=== PATIENT | female | born 2000 | race Caucasian/White ===

== ENCOUNTER 2020-11-27 11:32 | Emergency (ER) | payer OTHER ==
[~2020-11-27 11:32] MED LIST: NORCO 5-325 TA1 EACH PO
[2020-11-27 13:21] LABS: CORONAVIRUS 2019 SARS-COV-2 NEGATIVE (NEGATIVE); INFLUENZA A NAA NEGATIVE (NEGATIVE)
[2020-11-27 13:49] LABS: BASOPHIL 0.2 % (0-2); EOSINOPHIL 0 % (0-5); HCT 43.5 % (37.0-47.0); HGB 14.3 g/dl (12.5-16.0); LYMPHOCYTE 18.2 % (15-48); MCH 29.1 pg (25.0-31.0); MCHC 32.9 g/dL (32.0-36.0); MCV 88.4 fL (78.0-100.0); MONOCYTE 10.1 % (0-12); MPV 11.4 fL (6.0-9.5); NEUTROPHIL 71.1 % (41-80); NRBC 0; PLT 225 K/uL (150-400); RBC 4.92 M/uL (4.20-5.40); RDW 13.5 % (11.5-14.0); WBC 8.4 K/uL (4.0-10.5)
[2020-11-27 13:49] LABS: BILIRUBIN NEGATIVE (NEGATIVE); BLOOD 1+ Ery/uL (NEGATIVE); CLARITY CLEAR (CLEAR); COLOR YELLOW (YELLOW); GLUCOSE (U) NORMAL (NORMAL); LEUKOCYTES 1+ Leu/uL (NEGATIVE); NITRITE NEGATIVE (NEGATIVE); PROTEIN NEGATIVE (NEGATIVE); UROBILINOGEN 0.2 mg/dL (0.2-1.0)
[2020-11-27 13:56] LABS: MONOSPOT (MONONUCLEOSIS) NEGATIVE (NEGATIVE)
[2020-11-27 14:06] LABS: ALBUMIN 3.9 g/dL (3.4-5.0); BILIRUBIN - TOTAL 0.4 mg/dL (0.2-1.0); BUN/CREAT RATIO (CALC) 8.1 RATIO; CREATININE 0.86 mg/dL (0.51-0.95); GLOBULIN (CALCULATION) 4.3 g/dL; POTASSIUM 3.7 mmol/L (3.5-5.1); TOTAL PROTEIN 8.2 g/dL (6.4-8.2)
[2020-11-27 14:07] LABS: BACTERIA 1+; URINARY RBC RARE
[2020-11-27] MEDS ORDERED: AMOXICILLIN875 MG PO (14:11)
[2020-11-27] MEDS ORDERED: MEDROL 4MG DOSEP4 MG PO (14:11)
[2020-11-27] MEDS ORDERED: ZOFRAN4 M1 PO (14:11)
[2020-11-27] MEDS ORDERED: NAPROXEN500 MG PO (14:11)
== END 2020-11-27 14:50 | disposition home or self-care (01) ==
LOC: FER 11:32
PROVIDERS: Emergency Medicine
DX: J02.9 Acute pharyngitis, unspecified (principal); N39.0 Urinary tract infection, site not specified; F17.210 Nicotine dependence, cigarettes, uncomplicated; Z20.822 Contact with and (suspected) exposure to COVID-19
CPT/HCPCS: 36415; 80053; 81001; 85025; 86308; 87880; 99284; U0002

== ENCOUNTER 2021-02-14 14:15 | Emergency (ER) | payer OTHER ==
[~2021-02-14 14:15] MED LIST changes: +AMOXICILLIN875 MG PO; +MEDROL 4MG DOSEP4 MG PO; +NAPROXEN500 MG PO; +ZOFRAN4 M1 PO
[2021-02-14] MEDS ORDERED: BLEPH-10 O20 DROPS/M EYEBOTH (15:43)
== END 2021-02-14 16:03 | disposition home or self-care (01) ==
LOC: FER 14:15
DX: H10.33 Unspecified acute conjunctivitis, bilateral (principal)
CPT/HCPCS: 99282

== ENCOUNTER 2021-03-20 04:51 | Emergency (ER) | payer OTHER ==
[~2021-03-20 04:51] MED LIST changes: +BLEPH-10 O20 DROPS/M EYEBOTH
== END 2021-03-20 07:12 | disposition home or self-care (01) ==
LOC: FER 04:51
DX: S93.401A Sprain of unspecified ligament of right ankle, initial encounter (principal); F17.200 Nicotine dependence, unspecified, uncomplicated; W19.XXXA Unspecified fall, initial encounter
CPT/HCPCS: 73630